=== PATIENT | male | born 1970 | race Caucasian/White ===

== ENCOUNTER → 2016-11-18 | Outpatient (CLI) | payer BC ==
[~2016-11-18] MED LIST: ASPI1TAB83 PO; ATOR-24 PO; GABA-113 PO; INSU100I2 SC; INSU3INJ3 INJ; LISI40TA PO; OMEP40CA PO; OMEP40CA41 PO; ONDA4TAB10 SL
[2016-11-18 15:12] LABS: ALKALINE PHOSPHATASE 102 U/L (45-117); ALT/SGPT 39 U/L (12-78); BLOOD UREA NITROGEN 25 mg/dl (7-18); BUN/CREATININE RATIO 16.5 (10-20); CALCIUM 8.6 mg/dl (8.5-10.1); CARBON DIOXIDE 31 mmol/L (21-32); CHLORIDE 101 mmol/L (98-107); CHOLESTEROL 203 mg/dl (0-200); GLUCOSE 223 mg/dl (70-99); SODIUM 140 mmol/L (136-145); TRIGLYCERIDES 137 mg/dl (0-150); VERY LOW DENSITY LIPOPROT CALC 27 mg/dl
[2016-11-18 15:15] LABS: ALB/GLOB RATIO 1.3 (0.9-2); AST/SGOT 18 U/L (15-37); CHOLESTEROL/HDL RATIO 2.9; HDL CHOLESTEROL 70 mg/dl; LDL CHOLESTEROL CALCULATED 106 mg/dl
[2016-11-18 15:35] LABS: RATIO 17.9 mcg/mg (0-30.0)
[2016-11-19 07:07] LABS: ESTIMATED AVERAGE GLUCOSE 186 mg/dl; HA1C FLAG Normal (Normal)
--- NOTE | 2016-12-17 09:57 | CODING QUERY MEDICAL NECESSITY ---
CQSUPPORTING DIAGNOSIS NEEDED A supporting diagnosis is required for the test/procedure performed on this patient in order for us to be reimbursed by the patient's insurance. Please provide a supporting diagnosis for the following test/procedure listed below next to the test name along with your signature. *If there is no additional diagnosis for this patient that would support the following test/procedure please document that below next to the test/procedure. Test(s)/Procedure(s) that require a supporting diagnosis: DOS 11/18/16 VITAMIN D TEST Provider Signature: Date: Thank you Vesta Lai Health Information Management Once completed, please kindly fax back to [phone] For questions please call [phone]
== END | disposition home or self-care (01) ==
LOC: C.LAB1850 13:48
PROVIDERS: ATTEND Internal Medicine Endocrinology, Diabetes & Metabolism
DX: E78.5 Hyperlipidemia, unspecified (principal); I10 Essential (primary) hypertension; E10.9 Type 1 diabetes mellitus without complications; E55.9 Vitamin D deficiency, unspecified

== ENCOUNTER → 2017-03-01 | Outpatient (CLI) | payer BC ==
[~2017-03-01] MED LIST changes: +ASPCH81X PO; +ATOR-26 PO; -INSU3INJ3 INJ; +INSU3INJ3 SC
[2017-03-01 12:07] LABS: ESTIMATED AVERAGE GLUCOSE 189 mg/dl; HA1C FLAG Normal (Normal)
== END | disposition home or self-care (01) ==
LOC: C.LABBC 09:32
PROVIDERS: ATTEND Internal Medicine Endocrinology, Diabetes & Metabolism
DX: E78.5 Hyperlipidemia, unspecified (principal); R20.8 Other disturbances of skin sensation; E10.9 Type 1 diabetes mellitus without complications; E11.9 Type 2 diabetes mellitus without complications; E55.9 Vitamin D deficiency, unspecified

== ENCOUNTER 2017-07-02 15:19 | Emergency (ER) | payer BC ==
[~2017-07-02] VITALS: Ht 172.7 cm; Wt 81.7 kg
[~2017-07-02 15:19] MED LIST changes: -ASPCH81X PO; -ATOR-24 PO; -ATOR-26 PO; -GABA-113 PO; -INSU3INJ3 SC; -LISI40TA PO; -OMEP40CA41 PO; -ONDA4TAB10 SL
[2017-07-02 15:34] VITALS: TEMP 36.7; Ht 172.7 cm; Wt 81.7 kg
[2017-07-02] MEDS ORDERED: ONDANSETRON 8 MG/54 ML D5W IV STA (15:49)
[2017-07-02] MEDS ORDERED: SODIUM CHLORIDE 0.9% 1000ML 2,000 ML IV STA (15:49)
[2017-07-02 16:22] LABS: BASO % 0.2 %; BASO ABS # 0.02 K/uL (0-0.2); COMPLETE YES; EOS % 2.2 %; HEMATOCRIT 39.6 % (42-52); IG% 0.4 %; LYMPH % 15.7 %; LYMPH ABS # 1.75 K/uL (1.2-3.4); MEAN CORPUSCULAR HEMOGLOBIN 30.6 pg (25-34); MEAN CORPUSCULAR HGB CONC 36.9 g/dl (32-36); MONO % 8.7 %; NEUT % 72.8 %; PLATELET COUNT 337 K/uL (130-400); RED BLOOD COUNT 4.77 M/uL (4.7-6.1); WHITE BLOOD COUNT 11.14 K/uL (4.8-10.8)
[2017-07-02 16:30] LABS: URINE APPEARANCE CLEAR (CLEAR); URINE BILIRUBIN NEG (NEG); URINE COLOR YELLOW; URINE NITRITE NEG (NEG); URINE SPECIFIC GRAVITY 1.027 (1.000-1.030); UROBILINOGEN NEG (NEG); ZZUR CULT IF INDIC CLEAN CATCH NO
[2017-07-02 16:40] LABS: BUN/CREATININE RATIO 18.3 (10-20); CALCIUM 9.1 mg/dl (8.5-10.1); CREATININE 1.5 mg/dl (0.60-1.40); POTASSIUM 4.1 mmol/L (3.5-5.1)
[2017-07-02 16:48] LABS: MANUAL MICROSCOPIC REQUIRED? NO; REVIEW REQ? NO
[2017-07-02 16:51] LABS: THYROID STIMULATING HORMONE 0.392 uIu/ml (0.300-4.500)
[2017-07-02] MEDS ORDERED: ONDA4TAB10 SL (17:49)
[2017-07-02 18:24] VITALS: BP 135/78; PULSE 94; O2SAT 98
--- NOTE | 2017-07-03 01:13 | EMERGENCY ROOM VISIT NOTE ---
History First contact with patient: 15:37 Chief Complaint: GI ASSESSMENT Stated Complaint: GASSY STOMACH PAIN, V,D, RACING HEART, SOB History of Present Illness The patient is a 46 year old male, history of type 1 diabetes, who presents to the Emergency Room with complaints of ongoing nausea, vomiting, diarrhea, palpitations, feeling dehydrated and poor glucose control. The patient reports that his symptoms have been intermittent for the past 2 weeks. The patient reports that his blood glucose levels are usually well controlled. This morning his BSG was 65. He ate a candy bar and his glucose level dropped to 39. He then ate other sugary foods which caused his BSG despite over 300. The patient reports that the numbers have come back illness afternoon. The patient reports copious watery diarrhea with belching and flatulence. He has sought his underwear multiple times over the past few weeks. At this point, he has not had diarrhea since midnight, but has had several episodes of vomiting. He has an appointment to see his family doctor at the end of the week, but elected to come to the emergency department because of the way he is feeling. The patient denies any recent foreign travel or other known sick contacts. The patient reports that he does eat out a lot, but does not think that he ate any bad food. The patient has had GI issues in the past. He did have a normal EGD and colonoscopy performed approximately 2-[address] Chaparro. The patient currently rates his overall discomfort a 7 out of 10. Review of Systems HEENT: Denies dizziness, visual problems, hearing loss, tinnitus. Denies difficulty swallowing or oral lesions. PULMONARY: Denies cough, shortness of breath, sputum production or hemoptysis. CARDIOVASCULAR: Denies chest pain, palpitations, dyspnea on exertion, orthopnea or peripheral edema. GASTROINTESTINAL: See history of present illness. GENITOURINARY: Denies dysuria, frequency, urgency or nocturia. NEUROLOGIC: Denies history of epilepsy, CVA, TIA or chronic headaches. MUSCULOSKELETAL: Denies history of joint tenderness/swelling. SKIN: Denies rashes or lesions. PSYCHIATRIC: Denies history of depression or mental illness. ENDOCRINE: History of type 1 diabetes. Denies thyroid disorders. Past Medical/Surgical History Medical Problems: (1) Diabetes mellitus (2) Diabetes mellitus type 1 (3) DKA (diabetic ketoacidosis) (4) HLD (hyperlipidemia) Surgical Problems: (1) H/O colonoscopy (2) H/O esophagogastroduodenoscopy Family History Diabetes mellitus Heart disease Social History Smoking Status: Never Smoker Alcohol Use: occasionally Marital Status: Housing Status: lives with family Occupation Status: employed Current/Historical Medications Scheduled Aspirin (Aspirin), 1 TAB PO DAILY Atorvastatin (Lipitor), 40 MG PO DAILY Insulin Detemir (Levemir Flextouch), 34 UNITS INJ BID Insulin Lispro (Human) (Humalog Kwikpen), 10-20 UNITS SC TIDM Lisinopril (Zestril), 40 MG PO DAILY Ondasetron Odt (Zofran Odt), 4 MG SL Q6H Physical Exam Vital Signs Date Time Temp Pulse Resp B/P (MAP) Pulse Ox O2 Delivery O2 Flow Rate FiO2 07/02/17 18:24 94 18 135/78 98 Room Air 07/02/17 15:34 36.7 109 18 83/49 98 Room Air Physical Exam CONSTITUTIONAL: Healthy and well nourished. Alert and oriented X 3 with positive affect. Patient does not appear acutely or toxic, or any significant distress. HEENT: Normocephalic, atraumatic. Pupils equal, round and reactive. Ears and nares are clear. No scleral icterus or conjunctival injection/pallor. OROPHARYNX: Mucous membranes are dry. No posterior pharyngeal erythema, tonsillar hypertrophy or exudates. NECK: Full active range of motion without discomfort. RESPIRATORY: Clear to auscultation bilaterally with no wheezing, crackles, rhonchi or stridor. CARDIOVASCULAR: Regular rate and rhythm with no murmurs, rubs or gallops. GASTROINTESTINAL: Bowel sounds present in all quadrants. Has nonfocal but diffuse tenderness to palpation of the abdomen. No obvious hepatosplenomegaly. Negative McBurney's point tenderness. No focal left lower quadrant tenderness to palpation. Negative CVA tenderness. No rigidity, guarding or rebound. MUSCULOSKELETAL: Full range of motion of all joints without discomfort. INTEGUMENTARY: No rash or other significant dermatologic conditions noted. Light HEMATOLOGIC: No ecchymosis or petechiae. NEUROLOGIC: No focal neurologic deficits noted. Medical Decision & Procedures Laboratory Results 07/02/17 16:05 Red Blood Count 4.77, Mean Corpuscular Volume 83.0, Mean Corpuscular Hemoglobin 30.6, Mean Corpuscular Hemoglobin Concent 36.9, Mean Platelet Volume 10.0, Neutrophils (%) (Auto) 72.8, Lymphocytes (%) (Auto) 15.7, Monocytes (%) (Auto) 8.7, Eosinophils (%) (Auto) 2.2, Basophils (%) (Auto) 0.2, Neutrophils # (Auto) 8.11, Lymphocytes # (Auto) 1.75, Monocytes # (Auto) 0.97, Eosinophils # (Auto) 0.24, Basophils # (Auto) 0.02 07/02/17 16:05 Test 07/02/17 16:05 07/02/17 16:08 White Blood Count 11.14 K/uL (4.8-10.8) Red Blood Count 4.77 M/uL (4.7-6.1) Hemoglobin 14.6 g/dL (14.0-18.0) Hematocrit 39.6 % (42-52) Mean Corpuscular Volume 83.0 fL (80-100) Mean Corpuscular Hemoglobin 30.6 pg (25-34) Mean Corpuscular Hemoglobin Concent 36.9 g/dl (32-36) Platelet Count 337 K/uL (130-400) Mean Platelet Volume 10.0 fL (7.4-10.4) Neutrophils (%) (Auto) 72.8 % Lymphocytes (%) (Auto) 15.7 % Monocytes (%) (Auto) 8.7 % Eosinophils (%) (Auto) 2.2 % Basophils (%) (Auto) 0.2 % Neutrophils # (Auto) 8.11 K/uL (1.4-6.5) Lymphocytes # (Auto) 1.75 K/uL (1.2-3.4) Monocytes # (Auto) 0.97 K/uL (0.11-0.59) Eosinophils # (Auto) 0.24 K/uL (0-0.5) Basophils # (Auto) 0.02 K/uL (0-0.2) RDW Standard Deviation 37.5 fL (36.4-46.3) RDW Coefficient of Variation 12.3 % (11.5-14.5) Immature Granulocyte % (Auto) 0.4 % Immature Granulocyte # (Auto) 0.05 K/uL (0.00-0.02) Anion Gap 16.0 mmol/L (3-11) Est Creatinine Clear Calc Drug Dose 59.5 ml/min Estimated GFR () 63.8 Estimated GFR (Non- 55.0 BUN/Creatinine Ratio 18.3 (10-20) Calcium Level 9.1 mg/dl (8.5-10.1) Total Bilirubin 0.8 mg/dl (0.2-1) Direct Bilirubin 0.3 mg/dl (0-0.2) Aspartate Amino Transf (AST/SGOT) 14 U/L (15-37) Alanine Aminotransferase (ALT/SGPT) 25 U/L (12-78) Alkaline Phosphatase 104 U/L (45-117) Total Protein 6.8 gm/dl (6.4-8.2) Albumin 3.5 gm/dl (3.4-5.0) Lipase 68 U/L (73-393) Thyroid Stimulating Hormone (TSH) 0.392 uIu/ml (0.300-4.500) Urine Color YELLOW Urine Appearance CLEAR (CLEAR) Urine pH 5.0 (4.5-7.5) Urine Specific [place] 1.027 (1.000-1.030) Urine Protein NEG (NEG) Urine Glucose (UA) 3+ (NEG) Urine Ketones 4+ (NEG) Urine Occult Blood NEG (NEG) Urine Nitrite NEG (NEG) Urine Bilirubin NEG (NEG) Urine Urobilinogen NEG (NEG) Urine Leukocyte Esterase NEG (NEG) The above labs were reviewed. A mild leukocytosis is noted. Creatinine is 1.5 with a glucose of 274. Urinalysis shows glucosuria and ketonuria without signs of infection. TSH, LFTs and lipase are also normal. Medications Administered Medications (Trade) Dose Ordered Sig/Muriel Route Start Time Stop Time Status Last Admin Dose Admin Sodium Chloride 2,000 ml @ 999 mls/hr Q2H1M STAT IV 07/02/17 15:49 07/02/17 17:49 DC 07/02/17 15:49 999 MLS/HR Ondansetron HCl (Zofran 8mg Iv) 8 mg NOW STAT IV 07/02/17 15:49 07/02/17 15:52 DC 07/02/17 15:49 8 MG Procedure 1. IV hydration: The patient received a normal saline 2 L bolus 2. IV medications: Zofran 8 mg IVP ED Course Patient history and physical exam were performed. Nurse's notes were reviewed. Vital signs were reviewed and were normal. IV access was established, and labs were drawn. The patient was hydrated with normal saline, and received IV medications as discussed in the previous Procedure section. Review of labs shows a mild leukocytosis. Creatinine is elevated at 1.5. Stool studies were ordered, but the patient was unable to provide a stool sample. Urinalysis was normal. The patient did report significant improvement of his symptoms with IV hydration and Zofran, and felt well enough to go home. The patient was instructed to follow-up closely with his PCP. He reports having an appointment scheduled for tomorrow. He was encouraged to remain well- hydrated. He was provided a prescription for Zofran to prevent nausea. He was instructed to return to the emergency department for any progressively worsening symptoms. The patient was happy with plan of care, voice understanding of all discharge instructions, and denied any pain or nausea at the time of discharge. The case was also discussed with Dr. Capps, ED attending physician, who agrees with workup and plan of care. Medical Decision The patient presents to the emergency department with complaint of a 2 week history of and written nausea, vomiting and diarrhea. His workup today does show a mild leukocytosis and bumped creatinine. He clinically appears dehydrated. Laboratory studies are not suggestive of ketoacidosis, and with the patient having had a history of ketoacidosis in the past, does not feel that he is feeling that bad. The patient did have clinical improvement with IV hydration and Zofran, and felt well enough to go home. The patient was unable to provide stool studies to rule out infectious etiology. His clinical exam is not consistent with appendicitis or diverticulitis. Laboratory studies are not suggestive of pancreatitis or hepatitis. Urinalysis is not suggestive of UTI. Medication Reconcilliation Current Medication List: was personally reviewed by me Blood Pressure Screening Patient's blood pressure: Normal blood pressure Impression Primary Impression: Nausea, vomiting, and diarrhea Additional Impression: Diabetes mellitus type 1 Departure Information Prescriptions Ondasetron Odt (ZOFRAN ODT) 4 Mg Tab 4 MG SL Q6H for Nausea, #20 TAB Prov: Allen Marcano PA 07/02/17 Referrals Pastor Davis M.D. (PCP) Patient Instructions My [facility] Problem Qualifiers Additional Impression: Diabetes mellitus type 1 Diabetes mellitus complication status: with hyperglycemia Qualified Codes: E10.65 - Type 1 diabetes mellitus with hyperglycemia
[2017-07-10] MEDS ORDERED: LISI40TA PO (15:53)
[2017-07-10] MEDS ORDERED: ATOR-24 PO (15:53)
== END 2017-07-02 18:26 | disposition home or self-care (01) ==
LOC: C.EDB 15:21 → C.EDA 18:26
DX: R11.2 Nausea with vomiting, unspecified (principal); R19.7 Diarrhea, unspecified; E10.9 Type 1 diabetes mellitus without complications; E78.5 Hyperlipidemia, unspecified; Z79.82 Long term (current) use of aspirin; Z79.4 Long term (current) use of insulin; Z79.899 Other long term (current) drug therapy; Z98.890 Other specified postprocedural states; Z83.3 Family history of diabetes mellitus; Z82.49 Family history of ischemic heart disease and other diseases of the circulatory system

== ENCOUNTER 2017-07-10 16:30 | Emergency (ER) | payer BC ==
[~2017-07-10] VITALS: Ht 172.7 cm; Wt 86.0 kg
[~2017-07-10 16:30] MED LIST changes: +ATOR-24 PO; +LISI40TA PO; -OMEP40CA PO; +ONDA4TAB10 SL
[2017-07-10 16:33] VITALS: TEMP 36.5; Ht 172.7 cm; Wt 86.0 kg
[2017-07-10] MEDS ORDERED: SODIUM CHLORIDE 0.9% 1000ML 2,000 ML IV STA (17:28)
[2017-07-10] MEDS ORDERED: ONDANSETRON INJ 2 MG/ML 2 ML VIAL IV STA (17:28)
--- NOTE | 2017-07-10 17:41 | EMERGENCY ROOM VISIT NOTE ---
History Report prepared by Tiffani: Pancho Mcmahan Under the Supervision of: Dr. Cristofer Lopez D.O. First contact with patient: 17:24 Chief Complaint: VOMITING Stated Complaint: VOMITING,DIARRHEA,STOMACH PAIN Nursing Triage Summary: pt c/o vomitting and dirrhea for 3 wks seen here on fri. c/o diffuse abd pain History of Present Illness The patient is a 46 year old male who presents to the Emergency Room with complaints of intermittent vomiting for the past three weeks. The patient states that he has had 8 episodes of vomiting and diarrhea over the past three weeks. The patient states that 0930 this morning he had a "sour feeling" and pain in his abdomen. He states that around 1530 he started getting a headache, and then he started vomiting. He additionally states that he has been having diarrhea. The patient additionally states that he is having some shortness of breath, and he denies nay chest pain. He states that he had been having back pain, and he is very gassy and has been belching and having flatulence. He states that he has a history of diabetes, and he has been having low blood sugars due to the vomiting. He talked to his diabetes doctor, and they told him to decrease his Levemir by 20%. The patient states that he is going to see his GI doctor in a few days.. The patient additionally has a history of high blood pressure and cholesterol. He has not had any surgeries, though he has had an upper endoscopy and a colonoscopy. Source of History: patient Onset: three weeks Position: other (global) Quality: other (vomiting) Timing: intermittent Associated Symptoms: + headache, + SOB, + abdominal pain, + diarrhea, No chest pain Review of Systems See HPI for pertinent positives & negatives. A total of 10 systems reviewed and were otherwise negative. Past Medical & Surgical Medical Problems: (1) Diabetes mellitus (2) Diabetes mellitus type 1 (3) DKA (diabetic ketoacidosis) (4) HLD (hyperlipidemia) Surgical Problems: (1) H/O colonoscopy (2) H/O esophagogastroduodenoscopy Family History Diabetes mellitus Heart disease Social History Smoking Status: Never Smoker Alcohol Use: occasionally Marital Status: Housing Status: lives with family Occupation Status: employed Current/Historical Medications Scheduled Atorvastatin (Lipitor), 40 MG PO DAILY Gabapentin (Neurontin), 900 MG PO HS Insulin Detemir (Levemir Flextouch), 34 UNITS INJ BID Insulin Lispro (Human) (Humalog Kwikpen), UNITS SC TIDM Lisinopril (Zestril), 40 MG PO DAILY Omeprazole (Prilosec), 40 MG PO DAILY Ondasetron Odt (Zofran Odt), 4 MG SL Q6H Allergies Coded Allergies: No Known Allergies (Verified , 07/02/17) Physical Exam Vital Signs Date Time Temp Pulse Resp B/P (MAP) Pulse Ox O2 Delivery O2 Flow Rate FiO2 07/10/17 20:19 64 16 133/71 98 07/10/17 18:52 85 16 167/95 97 Room Air 07/10/17 16:33 36.5 88 20 170/101 98 Room Air Physical Exam GENERAL: Patient is awake, alert, and somewhat anxious appearing. EYES: The conjunctivae are clear. The pupils are round and reactive. EARS, NOSE, MOUTH AND THROAT: The nose is without any evidence of any deformity. Mucous membranes are dry tongue is midline NECK: The neck is nontender and supple. RESPIRATORY: Normal respiratory effort is noted there is no evidence of wheezing rhonchi or rales CARDIOVASCULAR: Tachycardic but regular. No definite murmurs noted to auscultation. GASTROINTESTINAL: The abdomen is moderately distended and diffusely tender. Significant tenderness in the lower quadrants noted. BACK: No midline tenderness or or step-off noted range of motion in flexion extension as well as rotation no signs of muscle spasm noted MUSCULOSKELETAL/EXTREMITIES: There is no evidence of gross deformity full range of motion is noted in the hips and shoulders SKIN: There is no obvious evidence of any rash. There are no petechiae, pallor or cyanosis noted. NEUROLOGIC: Patient is awake alert and oriented x3 strength is symmetric patellar reflexes are 2+ bilaterally Medical Decision & Procedures ER Provider Diagnostic Interpretation: Radiology results as stated below per my review and radiologist interpretation: CHEST ONE VIEW PORTABLE CLINICAL HISTORY: ABDOMINAL PAIN/GI pain COMPARISON STUDY: 03/11/2016 FINDINGS: Slight prominence of pulmonary vasculature. Lungs are considered clear. No focal infiltrate. Diaphragms are smooth. IMPRESSION: No acute process. Slight fullness of the pulmonary vasculature. The above report was generated using voice recognition software. It may contain grammatical, syntax or spelling errors. Electronically signed by: Thiago Ornelas M.D. 07/10/2017 6:51 PM Dictated Date/Time: 07/10/2017 6:50 PM ABD/PELVIS NO IV OR ORAL CONT CT DOSE: 920.64 mGycm HISTORY: Pain lower abd pain TECHNIQUE: Multiaxial CT images of the abdomen and pelvis were performed without contrast. A dose lowering technique was utilized adhering to the principles of ALARA. COMPARISON STUDY: 08/07/2015 FINDINGS: The lung bases are clear. The unenhanced liver, spleen, gallbladder, pancreas, kidneys, and adrenal glands are within normal limits. No bowel wall thickening or obstruction. The pelvic organs are unremarkable. No suspicious lytic or blastic osseous lesions. 2 mm nonobstructing lower pole left renal calcification. Normal appendix. IMPRESSION: No significant abnormality identified within the abdomen or pelvis. 2 mm nonobstructing lower pole left renal calcification. The above report was generated using voice recognition software. It may contain grammatical, syntax or spelling errors. Electronically signed by: Thiago Ornelas M.D. 07/10/2017 6:44 PM Dictated Date/Time: 07/10/2017 6:41 PM Laboratory Results 07/10/17 17:44 Red Blood Count 4.61, Mean Corpuscular Volume 84.4, Mean Corpuscular Hemoglobin 29.9, Mean Corpuscular Hemoglobin Concent 35.5, Mean Platelet Volume 9.6, Neutrophils (%) (Auto) 85.0, Lymphocytes (%) (Auto) 7.4, Monocytes (%) (Auto) 5.9, Eosinophils (%) (Auto) 1.3, Basophils (%) (Auto) 0.2, Neutrophils # (Auto) 14.80, Lymphocytes # (Auto) 1.28, Monocytes # (Auto) 1.02, Eosinophils # (Auto) 0.23, Basophils # (Auto) 0.04 07/10/17 17:44 Test 07/10/17 17:44 07/10/17 17:54 07/10/17 18:01 White Blood Count 17.41 K/uL (4.8-10.8) Red Blood Count 4.61 M/uL (4.7-6.1) Hemoglobin 13.8 g/dL (14.0-18.0) Hematocrit 38.9 % (42-52) Mean Corpuscular Volume 84.4 fL (80-100) Mean Corpuscular Hemoglobin 29.9 pg (25-34) Mean Corpuscular Hemoglobin Concent 35.5 g/dl (32-36) Platelet Count 300 K/uL (130-400) Mean Platelet Volume 9.6 fL (7.4-10.4) Neutrophils (%) (Auto) 85.0 % Lymphocytes (%) (Auto) 7.4 % Monocytes (%) (Auto) 5.9 % Eosinophils (%) (Auto) 1.3 % Basophils (%) (Auto) 0.2 % Neutrophils # (Auto) 14.80 K/uL (1.4-6.5) Lymphocytes # (Auto) 1.28 K/uL (1.2-3.4) Monocytes # (Auto) 1.02 K/uL (0.11-0.59) Eosinophils # (Auto) 0.23 K/uL (0-0.5) Basophils # (Auto) 0.04 K/uL (0-0.2) RDW Standard Deviation 39.0 fL (36.4-46.3) RDW Coefficient of Variation 13.0 % (11.5-14.5) Immature Granulocyte % (Auto) 0.2 % Immature Granulocyte # (Auto) 0.04 K/uL (0.00-0.02) Prothrombin Time 10.3 SECONDS (9.0-12.0) Prothromb Time International Ratio 1.0 (0.9-1.1) Activated Partial Thromboplast Time 25.4 SECONDS (21.0-31.0) Partial Thromboplastin Ratio 1.0 Anion Gap 8.0 mmol/L (3-11) Est Creatinine Clear Calc Drug Dose 117.2 ml/min Estimated GFR () 121.7 Estimated GFR (Non- 105.0 BUN/Creatinine Ratio 17.3 (10-20) Calcium Level 8.8 mg/dl (8.5-10.1) Magnesium Level 1.5 mg/dl (1.8-2.4) Total Bilirubin 0.5 mg/dl (0.2-1) Direct Bilirubin 0.2 mg/dl (0-0.2) Aspartate Amino Transf (AST/SGOT) 34 U/L (15-37) Alanine Aminotransferase (ALT/SGPT) 52 U/L (12-78) Alkaline Phosphatase 95 U/L (45-117) Troponin I < 0.015 ng/ml (0-0.045) Total Protein 6.8 gm/dl (6.4-8.2) Albumin 3.5 gm/dl (3.4-5.0) Lipase 140 U/L (73-393) Beta-Hydroxybutyric Acid 7.20 mg/dL (0.2-2.81) Bedside Lactic Acid Venous 0.63 mmol/L (0.90-1.70) Urine Color YELLOW Urine Appearance CLEAR (CLEAR) Urine pH 5.0 (4.5-7.5) Urine Specific [place] 1.020 (1.000-1.030) Urine Protein NEG (NEG) Urine Glucose (UA) 1+ (NEG) Urine Ketones NEG (NEG) Urine Occult Blood NEG (NEG) Urine Nitrite NEG (NEG) Urine Bilirubin NEG (NEG) Urine Urobilinogen NEG (NEG) Urine Leukocyte Esterase NEG (NEG) Date/Time Source Procedure Growth Status 07/10/17 18:01 Stool C.difficile Toxin B Gene (PCR) - Final No C. difficile toxin B gene detected Complete Laboratory results per my review. Medications Administered Medications (Trade) Dose Ordered Sig/Muriel Route Start Time Stop Time Status Last Admin Dose Admin Ondansetron HCl (Zofran Inj) 4 mg NOW STAT IV 07/10/17 17:28 07/10/17 17:30 DC 07/10/17 17:59 4 MG Sodium Chloride 2,000 ml @ 999 mls/hr Q2H1M STAT IV 07/10/17 17:28 07/10/17 19:28 DC 07/10/17 17:59 999 MLS/HR Magnesium Sulfate (Magnesium Sulfate) 1 gm NOW STAT IV 07/10/17 19:15 07/10/17 19:16 DC 07/10/17 19:22 1 GM Ketorolac Tromethamine (Toradol Inj) 30 mg NOW STAT IV 07/10/17 19:18 07/10/17 19:19 DC 07/10/17 19:24 30 MG ECG Indication: vomiting Rate (beats per minute): 83 Rhythm: normal sinus Findings: no ectopy, other (Biphasic T waves) Comparison ECG Date: 02/23/16 Change: no significant change ED Course 4: The patient was evaluated in room B5. A complete history and physical examination were performed. 1727: NSS 2,000 ml @ 999 mls/hr IV, Zofran Inj 4mg IV 1914: Magnesium Sulfate 1gm IV 1917: Toradol Inj 30mg IV 1949: Upon reevaluation, the patient is doing well. I discussed the results and treatment plan with him. He verbalized agreement of the treatment plan. He was discharged home. Medical Decision Differential diagnosis: Etiologies such as appendicitis, diverticulitis, PUD, biliary pathology, UTI, pancreatitis, obstruction, mesenteric ischemia, aortic pathology, infections, inflammatory bowel disease, renal colic, as well as others were entertained. Nursing notes reviewed. The patient's previous electronic medical records reviewed. The patient is a 46-year-old male who presented to the emergency department for an evaluation of nausea and vomiting. The patient has been having problems with nausea and vomiting which appear to be occurring every few weeks. He was in our facility recently for similar complaints. At that time he was treated with IV fluids and antiemetics and was feeling much better. The patient was treated again with IV fluids and IV antiemetics. He was reevaluated multiple times. I discussed the patient's laboratory and radiographic studies with him. He was found have an elevated white blood cell count and I was very concerned that this could represent some other underlying intra-abdominal pathology. I offered to have the patient evaluated by the hospitalist group for further inpatient management but the patient did not wish to stay in the hospital. He does have a follow-up appointment scheduled with gastroenterology. He was encouraged to keep this appointment. He was also encouraged to continue all medications as prescribed and drink plenty clear liquids. He was also encouraged return to the emergency Department immediately if symptoms change worsen or the need arises. Medication Reconcilliation Current Medication List: was personally reviewed by me Blood Pressure Screening Patient's blood pressure: Elevated blood pressure Blood pressure disposition: Elevated BP felt to be situational Impression Primary Impression: Nausea and vomiting Additional Impressions: Dehydration Elevated white blood cell count Scribe Attestation The scribe's documentation has been prepared under my direction and personally reviewed by me in its entirety. I confirm that the note above accurately reflects all work, treatment, procedures, and medical decision making performed by me. Departure Information Dispostion Home / Self-Care Referrals No Doctor, Assigned (PCP) Forms HOME CARE DOCUMENTATION FORM, IMPORTANT VISIT INFORMATION, Work Instructions Patient Instructions ED Vomiting Diarrhea Nonspecific Ad, My [facility] Additional Instructions Drink plenty clear liquids. Continue all medications as prescribed. Follow-up with your gasoline pump mechanic as scheduled. Return to the emergency department immediately if symptoms change worsen or the need arises Problem Qualifiers Primary Impression: Nausea and vomiting Vomiting type: unspecified Vomiting Intractability: unspecified Qualified Codes: R11.2 - Nausea with vomiting, unspecified
[2017-07-10 18:05] LABS: HEMATOCRIT 38.9 % (42-52); MEAN CELL VOLUME 84.4 fL (80-100); MEAN CORPUSCULAR HEMOGLOBIN 29.9 pg (25-34); MEAN CORPUSCULAR HGB CONC 35.5 g/dl (32-36); MEAN PLATELET VOLUME 9.6 fL (7.4-10.4); PLATELET COUNT 300 K/uL (130-400); RED BLOOD COUNT 4.61 M/uL (4.7-6.1); WHITE BLOOD COUNT 17.41 K/uL (4.8-10.8)
[2017-07-10] MEDS ORDERED: INSU3INJ3 INJ (18:08)
[2017-07-10 18:15] LABS: PROTHROMBIN TIME (PATIENT) 10.3 SECONDS (9.0-12.0)
[2017-07-10 18:17] LABS: URINE APPEARANCE CLEAR (CLEAR); URINE BILIRUBIN NEG (NEG); URINE COLOR YELLOW; URINE NITRITE NEG (NEG); UROBILINOGEN NEG (NEG)
[2017-07-10 18:24] LABS: ALT/SGPT 52 U/L (12-78); BLOOD UREA NITROGEN 15 mg/dl (7-18); BUN/CREATININE RATIO 17.3 (10-20); CALCIUM 8.8 mg/dl (8.5-10.1); CARBON DIOXIDE 24 mmol/L (21-32); CHLORIDE 107 mmol/L (98-107); CREATININE 0.84 mg/dl (0.60-1.40); GLUCOSE 181 mg/dl (70-99); POTASSIUM 3.7 mmol/L (3.5-5.1); SODIUM 139 mmol/L (136-145)
[2017-07-10 18:25] LABS: MANUAL MICROSCOPIC REQUIRED? NO; REVIEW REQ? NO
[2017-07-10 18:29] LABS: ALKALINE PHOSPHATASE 95 U/L (45-117); AST/SGOT 34 U/L (15-37)
[2017-07-10] MEDS ORDERED: GABA-113 PO (18:39)
[2017-07-10 18:42] LABS: BASO % 0.2 %; BASO ABS # 0.04 K/uL (0-0.2); COMPLETE YES; EOS % 1.3 %; IG% 0.2 %; LYMPH % 7.4 %; LYMPH ABS # 1.28 K/uL (1.2-3.4); MONO % 5.9 %
[2017-07-10] MEDS ORDERED: OMEP40CA41 PO (18:43)
--- NOTE | 2017-07-10 18:46 | DIAGNOSTIC IMAGING REPORT ---
ABD/PELVIS NO IV OR ORAL CONT CT DOSE: 920.64 mGycm HISTORY: Pain lower abd pain TECHNIQUE: Multiaxial CT images of the abdomen and pelvis were performed without contrast. A dose lowering technique was utilized adhering to the principles of ALARA. COMPARISON STUDY: 08/07/2015 FINDINGS: The lung bases are clear. The unenhanced liver, spleen, gallbladder, pancreas, kidneys, and adrenal glands are within normal limits. No bowel wall thickening or obstruction. The pelvic organs are unremarkable. No suspicious lytic or blastic osseous lesions. 2 mm nonobstructing lower pole left renal calcification. Normal appendix. IMPRESSION: No significant abnormality identified within the abdomen or pelvis. 2 mm nonobstructing lower pole left renal calcification. The above report was generated using voice recognition software. It may contain grammatical, syntax or spelling errors. Electronically signed by: Thiago Ornelas M.D. 07/10/2017 6:44 PM Dictated Date/Time: 07/10/2017 6:41 PM
--- NOTE | 2017-07-10 18:52 | DIAGNOSTIC IMAGING REPORT ---
CHEST ONE VIEW PORTABLE CLINICAL HISTORY: ABDOMINAL PAIN/GI pain COMPARISON STUDY: 03/11/2016 FINDINGS: Slight prominence of pulmonary vasculature. Lungs are considered clear. No focal infiltrate. Diaphragms are smooth. IMPRESSION: No acute process. Slight fullness of the pulmonary vasculature. The above report was generated using voice recognition software. It may contain grammatical, syntax or spelling errors. Electronically signed by: Thiago Ornelas M.D. 07/10/2017 6:51 PM Dictated Date/Time: 07/10/2017 6:50 PM
[2017-07-10] MEDS ORDERED: MAGNESIUM SULFATE 1GM / D5W 1 GM BAG IV STA (19:15)
[2017-07-10] MEDS ORDERED: KETOROLAC TROMETHAMINE 30 MG/ML VIAL IV STA (19:18)
[2017-07-10 20:19] VITALS: BP 133/71; PULSE 64; O2SAT 98
== END 2017-07-10 20:19 | disposition home or self-care (01) ==
LOC: C.EDB 16:31
DX: R11.2 Nausea with vomiting, unspecified (principal); E86.0 Dehydration; D72.829 Elevated white blood cell count, unspecified; E10.10 Type 1 diabetes mellitus with ketoacidosis without coma; E78.5 Hyperlipidemia, unspecified; Z83.3 Family history of diabetes mellitus; Z82.49 Family history of ischemic heart disease and other diseases of the circulatory system; Z79.4 Long term (current) use of insulin

== ENCOUNTER → 2017-07-18 | Outpatient (CLI) | payer BC ==
[~2017-07-18] MED LIST changes: -ASPI1TAB83 PO; +GABA-113 PO; +INSU3INJ3 INJ; +OMEP40CA41 PO
--- NOTE | 2017-07-18 10:10 | DIAGNOSTIC IMAGING REPORT ---
BILIARY ABDOMEN LIMITED HISTORY: 46 years-old Male R10.9 Abdominal pain of multiple [id number] Nausea and vomitingR acute abdominal pain with nausea and vomiting COMPARISON: CT abdomen and pelvis 07/10/2017 TECHNIQUE: Multiple real-time sonographic images of the abdominal right upper quadrant were obtained assessing grayscale appearance and color flow FINDINGS: The liver is unremarkable measuring up to 17.8 cm in length. The pancreas is partially obscured by bowel gas, however the pancreatic head appears mildly heterogeneous. No pancreatic ductal dilation identified. Gallbladder is within normal limits without shadowing cholelithiasis, gallbladder wall thickening or pericholecystic fluid collections. Common bile duct measures 0.3 cm. Right kidney is unremarkable without hydronephrosis identified. IMPRESSION: 1. Partially obscured pancreas with the pancreatic head appearing mildly heterogeneous. This is nonspecific. Note that the pancreas appeared normal on comparison CT 07/10/2017. 2. No evidence of cholelithiasis or acute cholecystitis. 3. No biliary ductal dilation. The above report was generated using voice recognition software. It may contain grammatical, syntax or spelling errors. Electronically signed by: Moshe Daniel M.D. 07/18/2017 10:08 AM Dictated Date/Time: 07/18/2017 10:00 AM
== END | disposition home or self-care (01) ==
LOC: C.ULTR 09:30
PROVIDERS: ATTEND Registered Nurse
DX: R10.9 Unspecified abdominal pain (principal); R11.2 Nausea with vomiting, unspecified; R14.0 Abdominal distension (gaseous)

== ENCOUNTER → 2017-08-19 | Day surgery (SDC) | payer BC ==
[~2017-08-19] VITALS: Ht 172.7 cm; Wt 86.5 kg
[~2017-08-19] MED LIST changes: +ASPCH81X PO; +ATOR-26 PO; -INSU3INJ3 INJ; +INSU3INJ3 SC
[2017-08-19 08:42] VITALS: BP 115/71; PULSE 81; TEMP 36.5; O2SAT 99; Ht 172.7 cm; Wt 86.5 kg
--- NOTE | 2017-09-10 17:00 | Procedure Note ---
Breath Hydrogen Test Interpretation Assessment: Patient presented for Lactulose breath test secondary to abdominal pain and bloating. The test was negative for any evidence of Small intestinal bacterial overgrowth. The test was aborted prematurely as patient became hypoglycemic. Plan: He was instructed to followup in our office for further evaluation and recommendations regarding his symptoms.
== END | disposition home or self-care (01) ==
LOC: C.MTU 08:32
PROVIDERS: ATTEND Internal Medicine
DX: R14.0 Abdominal distension (gaseous) (principal)

== ENCOUNTER → 2017-08-28 | Day surgery (SDC) | payer BC ==
[2017-08-27 14:47] VITALS: Ht 172.7 cm; Wt 86.4 kg
[~2017-08-28] VITALS: Ht 172.7 cm; Wt 86.4 kg
[~2017-08-28] MED LIST changes: -ATOR-24 PO; +ATROPINE SULFATE 0.1 MG/ML 5ML SYR IV PRN; +EpHEDrine SULFATE INJ 50 MG/ML AMP IV PRN; +INSULIN HUMAN REGULAR PER UNIT 15 UNITS in SYRINGE 14.85 ML IV SCH; +LIDOCAINE HCL 2% 2 ML VIAL (20MG/ML) ONE; +MIDAZOLAM HCL 1 MG/ML 2ML VIAL ONE; +NovoLIN-R INSULIN PER UNIT CHARGE IV STA; +ONDANSETRON INJ 2 MG/ML 2 ML VIAL ONE; +PROPOFOL IV EMULSION 10 MG/ML 20 ML VIAL IV ONE
--- NOTE | 2017-08-28 13:39 | Endo History and Physical ---
History & Physical Date of Service: Aug 28, 2017. Chief Complaint: nausea,vomiting Referring Physician: Dr. Pastor Davis History of Present Illness 47 yo CM who presents for EGD secondary to nausea and vomiting. Past Medical History Diabetes, Reflux Past Surgical History Hx Cardiac Surgery: No Hx Internal Defibrillator: No Hx Pacemaker: No Hx Abdominal Surgery: No Hx of Implantable Prosthesis: No Hx Post-Op Nausea and Vomiting: No Hx Cancer Surgery: No Hx Thoracic Surgery: No Hx Orthopedic: No Hx Urinary Tract Surgery: No Family History Colon CA, Esophogeal CA Social History Smoking Status: Never Smoker Hx Substance Use: No Hx Alcohol Use: Yes (RARELY) Allergies Coded Allergies: No Known Allergies (Verified , 08/28/17) Current Medications Reported Home Medications Medications Dose Route/Sig Max Daily Dose Days Date Category Dose Instructions Aspirin Chewable (Aspirin) 81 Mg Chew 81 Mg PO QAM 08/27/17 Reported Lipitor (Atorvastatin Calcium) 80 Mg Tab 80 Mg PO QAM 08/27/17 Reported Prilosec (Omeprazole) 40 Mg Cap 40 Mg PO QAM 07/10/17 Reported Neurontin (Gabapentin) 300 Mg Cap 900 Mg PO HS 07/10/17 Reported Zofran Odt (Ondansetron HCl) 4 Mg Tab 4 Mg SL Q6H 07/02/17 Rx Zestril (Lisinopril) 40 Mg Tab 2 Tab PO QAM 07/02/17 Reported Levemir Flextouch (Insulin Detemir) 100 Unit/Ml Inj 34 Units SC BID 03/11/16 Reported Humalog Kwikpen (Insulin Lispro (Human)) 100 Unit/Ml Inj Units SC TIDM 12/01/14 Reported PER SLIDING SCALE. 30-40 UNITS DAILY Vital Signs Weight (Kilograms): 86.36 Height (Feet): 5 Height (Inches): 8 Date Time Temp Pulse Resp B/P (MAP) Pulse Ox O2 Delivery O2 Flow Rate FiO2 08/28/17 13:07 36.9 83 18 179/98 (125) 97 Room Air Physical Exam General Appearance: WD/WN, no apparent distress Respiratory/Chest: Auscultation: breath sounds normal Cardiovascular: Heart Auscultation: RRR Abdomen: Bowel Sounds: normal Inspection & Palpation: soft, non-distended, no tenderness, guarding & rebound Assessment and Plan Assessment: 47 yo CM who presents for EGD secondary to nausea and vomiting. Plan: Proceed with colonoscopy.
--- NOTE | 2017-08-28 13:58 | Anesthesiology Progress Note ---
Anesthesia Progress Note Date of Service Aug 28, 2017. Progress Notes Patient is an IDDM.Apparently, not well controlled.Pt has a Hx/o DKA.I recommended iv insulin and explained the risks vs benefits and the patient refused.The pt was late arriving and rather unpleasant to staff and myself.
--- NOTE | 2017-08-28 14:21 | Anesthesiology Progress Note ---
Anesthesia Post Op Note Date & Time Aug 28, 2017 at 14:21 Vital Signs Pain Intensity: 0 Vital Signs Past 12 Hours Date Time Temp Pulse Resp B/P (MAP) Pulse Ox O2 Delivery O2 Flow Rate FiO2 08/28/17 14:12 78 16 150/94 (112) 93 Room Air 08/28/17 13:07 36.9 83 18 179/98 (125) 97 Room Air Notes Mental Status: alert / awake / arousable, participated in evaluation Pt Amnestic to Procedure: Yes Nausea / Vomiting: adequately controlled Pain: adequately controlled Airway Patency, RR, SpO2: stable & adequate BP & HR: stable & adequate Hydration State: stable & adequate Anesthetic Complications: no major complications apparent
--- NOTE | 2017-08-28 14:22 | Discharge Instructions ---
Endoscopy Patient Instructions Date / Procedure(s) Performed Aug 28, 2017. EGD Allergy Information Coded Allergies: No Known Allergies (Verified , 08/28/17) Discharge Date / Findings Aug 28, 2017. Gastritis s/p biopsies Hiatal hernia Medication Instructions Stopped Medication(s): took ASA yesterday OK to resume all medications today as prescribed Reported Home Medications Medications Dose Route/Sig Max Daily Dose Days Date Category Dose Instructions Aspirin Chewable (Aspirin) 81 Mg Chew 81 Mg PO QAM 08/27/17 Reported Lipitor (Atorvastatin Calcium) 80 Mg Tab 80 Mg PO QAM 08/27/17 Reported Prilosec (Omeprazole) 40 Mg Cap 40 Mg PO QAM 07/10/17 Reported Neurontin (Gabapentin) 300 Mg Cap 900 Mg PO HS 07/10/17 Reported Zofran Odt (Ondansetron HCl) 4 Mg Tab 4 Mg SL Q6H 07/02/17 Rx Zestril (Lisinopril) 40 Mg Tab 2 Tab PO QAM 07/02/17 Reported Levemir Flextouch (Insulin Detemir) 100 Unit/Ml Inj 34 Units SC BID 03/11/16 Reported Humalog Kwikpen (Insulin Lispro (Human)) 100 Unit/Ml Inj Units SC TIDM 12/01/14 Reported PER SLIDING SCALE. 30-40 UNITS DAILY Provider Instructions Activity Restrictions - No exercising or heavy lifting for 24 hours. - Do not drink alcohol the day of the procedure. - Do not drive a car or operate machinery until the day after the procedure. - Do not make any important decisions or sign important papers in 24 hours after the procedure. Following Day: - Return to full activity which may include returning to work/school. Diet Start your diet with liquids and light foods (jello, soup, juice, toast). Then eat your usual diet if not nauseated. Treatment For Common After Affects For mild abdominal pain, bloating, or excessive gas: - Rest - Eat lightly - Lie on right side Follow-Up Information Follow-up with Dr. Pastor Davis as scheduled Anesthesia Information What You Should Know You have had a procedure that required some medicine to reduce anxiety and discomfort. This treatment is called moderate sedation. After receiving the treatment, you may be sleepy, but you will be able to breathe on your own. The effects of the treatment may last for several hours. Follow these instructions along with Activity/Diet recommendations noted above: * Do NOT do anything where dizziness or clumsiness would be dangerous. * Rest quietly at home today, then you can be up and about tomorrow. * Have a responsible person stay with you the rest of today. * You may have had an I.V. today. If so, you may take the dressing off later today. Recommendations Call your doctor if: * Trouble breathing * Continuous vomiting for more than 24 hours * Temperature above 101 degrees * Severe abdominal pain or bloating * Pain not relieved by pain medicine ordered * There is increased drainage or redness from any incision * A large amount of rectal bleeding greater than 2-3 tablespoons. (If you had a polyp/s removed or have hemorrhoids, a small amount of blood - from the rectum is to be expected.) * You have any unanswered questions or concerns. IN THE EVENT OF A SERIOUS EMERGENCY, GO TO THE NEAREST EMERGENCY ROOM Your discharge instructions were prepared by provider Raffi Barroso. Patient Instructions Signature Page Hussain Matias Patient (or Guardian) Signature/Date: I have read and understand the instructions given to me by my caregivers. Caregiver/RN/Doctor Signature/Date: The above-named patient and/or guardian has received patient instructions on this date. + Original Patient Signature Page (only) stays with chart. Please make copy for patient.
[2017-08-28 14:32] VITALS: BP 165/98; PULSE 80; O2SAT 97
--- NOTE | 2017-08-29 00:24 | GI REPORT ---
Procedure Date: 08/28/2017 1:09 PM Procedure: Upper GI endoscopy Indications: Nausea with vomiting Medicines: Monitored Anesthesia Care Complications: No immediate complications. Estimated Blood Loss: Estimated blood loss: none. Procedure: Pre-Anesthesia Assessment: - Prior to the procedure, a History and Physical was performed, and patient medications and allergies were reviewed. The patient's tolerance of previous anesthesia was also reviewed. The risks and benefits of the procedure and the sedation options and risks were discussed with the patient. All questions were answered, and informed consent was obtained. Prior Anticoagulants: The patient has taken aspirin, last dose was 1 day prior to procedure. ASA Grade Assessment: III - A patient with severe systemic disease. After reviewing the risks and benefits, the patient was deemed in satisfactory condition to undergo the procedure. After obtaining informed consent, the endoscope was passed under direct vision. Throughout the procedure, the patient's blood pressure, pulse, and oxygen saturations were monitored continuously. The Scope was introduced through the mouth, and advanced to the second part of duodenum. The upper GI endoscopy was accomplished without difficulty. The patient tolerated the procedure well. Findings: The esophagus was normal. A small hiatus hernia was present. Localized mild inflammation characterized by erythema was found in the gastric antrum. Biopsies were taken with a cold forceps for histology. The examined duodenum was normal. Impression: - Normal esophagus. - Small hiatus hernia. - Gastritis. Biopsied. - Normal examined duodenum. Recommendation: - Resume previous diet. - Continue present medications. - Await pathology results. - Recommend more stringent blood glucose control as fluctuations both acute and chronic can result in decreased GI motility. - Return to primary care physician as previously scheduled. Raffi Barroso, 08/28/2017 2:21:09 PM This report has been signed electronically. Note Initiated On: 08/28/2017 1:09 PM I attest to the content of the Intraoperative Record and orders documented therein, exceptions below
== END | disposition home or self-care (01) ==
LOC: C.GI 12:39
PROVIDERS: ATTEND Internal Medicine
DX: R11.2 Nausea with vomiting, unspecified (principal); K29.70 Gastritis, unspecified, without bleeding; K44.9 Diaphragmatic hernia without obstruction or gangrene; K21.9 Gastro-esophageal reflux disease without esophagitis; E10.9 Type 1 diabetes mellitus without complications; Z80.0 Family history of malignant neoplasm of digestive organs; Z79.82 Long term (current) use of aspirin; I10 Essential (primary) hypertension; E78.5 Hyperlipidemia, unspecified